=== PATIENT | female | born 1935 | race Caucasian/White ===

== ENCOUNTER 2017-02-03 06:24 | Observation (INO) | payer MEDICARE, BC ==
[2017-02-03] MEDS ORDERED: SODIUM CHLORIDE 0.9% 1000 ML SOL IV SCH (07:15)
[2017-02-03 07:20] LABS: CALCIUM 8.5 mg/dl (8.5-10.1); POTASSIUM 3.5 mMol/L (3.5-5.1)
[2017-02-03 07:26] LABS: BASOPHILS % (AUTO) 1 % (0-3); EOSINOPHILS % (AUTO) 0 % (0-9); HEMATOCRIT 37 % (35-47); MEAN CORPUSCULAR HGB CONC 37.8 gm/dl (32.0-36.0); MEAN CORPUSCULAR VOLUME 94 fL (81-99); MONOCYTES % (AUTO) 7.1 % (0-12); NEUTROPHILS % (AUTO) 79.4 % (37-80)
[2017-02-03 08:00] LABS: NORMAL RBCS NORMAL RBCS
[2017-02-03] MEDS ORDERED: LORAZEPAM 0.5 MG TAB PO PRN (08:46)
[2017-02-03] MEDS ORDERED: CLOTRIMAZOLE 1% CREAM TOP ONE (09:28)
[2017-02-03] MEDS: CLOTRIMAZOLE 1% CREAM TOP SCH ×2 (09:40→22:14)
[2017-02-03] MEDS: METOPROLOL SUCCINATE 50 MG ER TAB PO SCH ×2 (10:02→22:13)
[2017-02-03] MEDS: LEVETIRACETAM 250 MG TAB PO SCH ×2 (10:02→22:14)
[2017-02-03] MEDS: PANTOPRAZOLE SODIUM 40 MG ECT PO SCH (10:02)
[2017-02-03] MEDS: SODIUM CHLORIDE 0.9% FLUSH 10 ML SOL IV SCH (22:15)
[2017-02-04] MEDS: SODIUM CHLORIDE 0.9% FLUSH 10 ML SOL IV SCH (05:01)
[2017-02-04 07:54] VITALS: BP 154/79; PULSE 63; RESP 18; TEMP 97.5; O2SAT 95
[2017-02-04] MEDS: METOPROLOL SUCCINATE 50 MG ER TAB PO SCH (07:59)
[2017-02-04] MEDS: PANTOPRAZOLE SODIUM 40 MG ECT PO SCH (07:59)
[2017-02-04] MEDS: LEVETIRACETAM 250 MG TAB PO SCH (07:59)
[2017-02-04] MEDS: CLOTRIMAZOLE 1% CREAM TOP SCH (08:01)
== END 2017-02-04 10:06 | disposition hospice, inpatient (51) | DRG 55 ==
LOC: ED 06:24 → ACUTE CARE 08:28 → UNDOADMOB 08:28 → ACUTE CARE 09:30
PROVIDERS: ADMIT Family Medicine; ATTEND Family Medicine
DX: C71.1 Malignant neoplasm of frontal lobe (principal); R47.01 Aphasia; R53.1 Weakness; R53.83 Other fatigue
CPT/HCPCS: 70450; 80048; 85025; 96365; 99284; A6232